=== PATIENT | male | born 1970 | race Caucasian/White ===

== ENCOUNTER 2020-03-04 23:06 | Emergency (ER) | payer MEDICARE, MEDICAID, OTHER ==
--- NOTE | 2020-03-05 00:12 | EDM.PDOC ---
ED HPI GENERAL MEDICAL PROBLEM - General Chief Complaint: ENT Problem Stated Complaint: SORE THROAT Time Seen by Provider: 03/04/20 23:50 Source of Information: Reports: Patient History Limitations: Reports: No Limitations - History of Present Illness INITIAL COMMENTS - FREE TEXT/NARRATIVE: 49-year-old male with a sore throat for the last 2 to 3 hours, no other symptoms. I think he is interested in knowing if he has strep or not. No fevers or chills. No exposure to strep that he knows of. Onset: Gradual Duration: Hour(s): (Just 3 to 4 hours) Associated Symptoms: Reports: No Other Symptoms Throat Pain Score (Numeric/FACES): 3 - Related Data Allergies Allergy/AdvReac Type Severity Reaction Status Date / Time No Known Allergies Allergy Verified 03/04/20 23:22 Home Meds: Home Meds . [Unable to Verify Home Med List] 03/04/20 [History] Past Medical History Endocrine/Metabolic History: Reports: Diabetes, Type I - Infectious Disease History Infectious Disease History: Reports: Chicken Pox - Past Surgical History GI Surgical History: Reports: Colon Social & Family History - Family History Family Medical History: Noncontributory - Tobacco Use Smoking Status *Q: Never Smoker - Caffeine Use Caffeine Use: Reports: Energy Drinks - Recreational Drug Use Recreational Drug Use: No ED ROS ENT - Review of Systems Review Of Systems: See Below Constitutional: Denies: Fever, Chills HEENT: Reports: Throat Pain Respiratory: Denies: Shortness of Breath Cardiovascular: Denies: Chest Pain GI/Abdominal: Denies: Nausea, Vomiting ED EXAM, ENT - Physical Exam Exam: See Below Exam Limited By: No Limitations General Appearance: Alert, Anxious Mouth/Throat: Pharyngeal Erythema Neck: No: Lymphadenopathy (R), Lymphadenopathy (L) Respiratory/Chest: No Respiratory Distress, Lungs Clear Course - Vital Signs Last Recorded V/S: Last Vital Signs Temp 97.2 F 03/04/20 23:24 Pulse 91 03/04/20 23:24 Resp 16 03/04/20 23:24 BP 142/82 H 03/04/20 23:24 Pulse Ox 95 03/04/20 23:24 - Orders/Labs/Meds Orders: Active Orders 24 hr Category Date Time Status CULTURE STREP A CONFIRMATION [] Routine Lab 03/05/20 00:07 Results STREP SCRN A RAPID W CULT CONF [RM] Routine Lab 03/05/20 00:07 Results - Re-Assessments/Exams Free Text/Narrative Re-Assessment/Exam: 03/05/20 00:12 A rapid strep was obtained. 03/05/20 00:22 Strep was negative, patient was encouraged to drink plenty of fluids, use lozenges and recheck if worsening or concerns. Departure - Departure Time of Disposition: 00:39 Disposition: Home, Self-Care 01 Clinical Impression: Viral pharyngitis - Discharge Information Instructions: Pharyngitis Referrals: Maura Null PA [Primary Care Provider] - Forms: ED Department Discharge Care Plan Goals: Keep throat moist with fluids, lozenges, and advance diet as tolerated. Recheck in 2 to 3 days if not improving satisfactorily or return anytime sooner if worsening such as fever or increased pain. Sepsis Event Note - Evaluation Sepsis Screening Result: No Definite Risk - Focused Exam Vital Signs: Vital Signs Temp Pulse Resp BP Pulse Ox 03/04/20 23:24 97.2 F 91 16 142/82 H 95 Date Exam was Performed: 03/05/20 Time Exam was Performed: 02:52 - My Orders Last 24 Hours: My Active Orders 03/05/20 00:07 CULTURE STREP A CONFIRMATION [RM] Routine STREP SCRN A RAPID W CULT CONF [RM] Routine - Assessment/Plan Last 24 Hours: My Active Orders 03/05/20 00:07 CULTURE STREP A CONFIRMATION [RM] Routine STREP SCRN A RAPID W CULT CONF [RM] Routine
== END 2020-03-05 00:39 | disposition home or self-care (01) ==
LOC: JP.ED 23:06
DX: J02.8 Acute pharyngitis due to other specified organisms (principal); B97.89 Other viral agents as the cause of diseases classified elsewhere; E10.9 Type 1 diabetes mellitus without complications
CPT/HCPCS: 87081; 87880-QW; 99282; 99283

== ENCOUNTER 2021-03-06 13:59 | Emergency (ER) | payer MEDICARE, MEDICAID ==
--- NOTE | 2021-03-06 15:57 | EDM.PDOC ---
ED HPI GENERAL MEDICAL PROBLEM - General Chief Complaint: Behavioral/Psych Stated Complaint: EVAL Time Seen by Provider: 03/06/21 15:18 Source of Information: Reports: Patient, RN Notes Reviewed History Limitations: Reports: No Limitations - History of Present Illness INITIAL COMMENTS - FREE TEXT/NARRATIVE: 50-year-old gentleman brought in by law enforcement for psychiatric evaluation. Per law enforcement he had written threatening letters threatening to do harm to former President Jose Alfredo Solano. Secret Service was here did interview him felt it was not a credible threat. Enforcement placed him on a 72-hour hold barring further medical and psychiatric evaluation. He does admit to me that he was very upset with his home health nurse who was a [employer] supporter they would get into various political discussions between his political views and hers which prompted him to write a letter expressing that he was going to harm form president Xiomara. He does admit that writing these things and letter was inappropriate and wrong. He denies any suicidal ideation this time denies any homicidal ideation he states he is not hearing hallucinations he was hearing hallucinations back in January when he originally wrote the letter. He is appropriate pleasant cooperative says please and thank you - Related Data Allergies Allergy/AdvReac Type Severity Reaction Status Date / Time No Known Allergies Allergy Verified 03/06/21 14:12 Home Meds: Home Meds Adalimumab [Humira Pen] 1 injection SQ ASDIRECTED 03/06/21 [History] ClonazePAM [KlonoPIN] 2 mg PO ASDIRECTED 03/06/21 [History] Divalproex Sodium 1,000 mg PO BEDTIME 03/06/21 [History] Divalproex Sodium [Depakote] 500 mg PO DAILY 03/06/21 [History] Insulin Aspart [NovoLOG] 0 units SQ TID 03/06/21 [History] Insulin Detemir [Levemir] 40 units SQ Q12H 03/06/21 [History] azaTHIOprine [Imuran] 50 mg PO DAILY 03/06/21 [History] lamoTRIgine [Lamotrigine] 50 mg PO DAILY 03/06/21 [History] Past Medical History Endocrine/Metabolic History: Reports: Diabetes, Type I - Infectious Disease History Infectious Disease History: Reports: Chicken Pox - Past Surgical History GI Surgical History: Reports: Colon Social & Family History - Family History Family Medical History: No Pertinent Family History - Caffeine Use Caffeine Use: Reports: Energy Drinks ED ROS GENERAL - Review of Systems Review Of Systems: See Below Constitutional: Reports: No Symptoms HEENT: Reports: Vertigo Cardiovascular: Reports: No Symptoms GI/Abdominal: Reports: No Symptoms Psychiatric: Denies: Agitation, Anxiety, Depression, Hallucinations, Homicidal Ideation, Suicidal Ideation ED EXAM, GENERAL - Physical Exam Exam: See Below Free Text/Narrative:: Orientated to person place and time, appropriately dressed, well groomed, memory to recent and remote events intact, good attention and concentration, speech is of adequate rate tone and volume, good fund of knowledge, language is appropriate, Mood and affect are euthymic, no pressured thoughts, denies suicidal ideation, denies homicidal ideation, no hallucinations visual or auditory, good judgment, good insight Exam Limited By: No Limitations General Appearance: Alert, WD/WN, No Apparent Distress Respiratory/Chest: No Respiratory Distress, Lungs Clear, Normal Breath Sounds, No Accessory Muscle Use, Chest Non-Tender Cardiovascular: Regular Rate, Rhythm, No Murmur GI/Abdominal: Soft, Non-Tender Course - Vital Signs Last Recorded V/S: Last Vital Signs Temp 98.2 F 03/06/21 14:11 Pulse 94 03/06/21 14:11 Resp 16 03/06/21 14:11 BP 150/91 H 03/06/21 14:11 Pulse Ox 94 L 03/06/21 14:11 - Orders/Labs/Meds Labs: Laboratory Tests 03/06/21 03/06/21 03/06/21 Range/Units 14:25 14:59 15:05 WBC 8.0 (4.5-11.0) K/uL RBC 4.95 (4.30-5.90) M/uL Hgb 15.8 H (12.0-15.0) g/dL Hct 45.6 (40.0-54.0) % MCV 92 (80-98) fL MCH 32 H (27-31) pg MCHC 35 (32-36) % Plt Count 232 (150-400) K/uL Neut % (Auto) 70 H (36-66) % Lymph % (Auto) 20 L (24-44) % Archuleta % (Auto) 7 H (2-6) % Eos % (Auto) 2 (2-4) % Baso % (Auto) 1 (0-1) % Sodium 138 L (140-148) mmol/L Potassium 4.5 (3.6-5.2) mmol/L Chloride 98 L (100-108) mmol/L Carbon Dioxide 29 (21-32) mmol/L Anion Gap 15.5 H (5.0-14.0) mmol/L BUN 14 (7-18) mg/dL Creatinine 1.0 (0.8-1.3) mg/dL Est Cr Clr Drug Dosing 107.97 mL/min Estimated GFR (MDRD) > 60 (>60) Glucose 289 H (74-106) mg/dL Calcium 8.6 (8.5-10.1) mg/dL Total Bilirubin 0.4 (0.2-1.0) mg/dL AST 22 (15-37) U/L ALT 23 (12-78) U/L Alkaline Phosphatase 83 (46-116) U/L Total Protein 7.7 (6.4-8.2) g/dL Albumin 3.2 L (3.4-5.0) g/dL Globulin 4.5 H (2.3-3.5) g/dL Albumin/Globulin Ratio 0.7 L (1.2-2.2) TSH, Ultra Sensitive 1.241 (0.358-3.740) uIU/mL Urine Opiates Screen Negative (NEGATIVE) Ur Oxycodone Screen Negative (NEGATIVE) Urine Methadone Screen Negative (NEGATIVE) Ur Propoxyphene Screen Negative (NEGATIVE) Ur Barbiturates Screen Negative (NEGATIVE) Ur Tricyclics Screen Negative (NEGATIVE) Ur Phencyclidine Scrn Negative (NEGATIVE) Ur Amphetamine Screen Negative (NEGATIVE) U Methamphetamines Scrn Negative (NEGATIVE) Urine MDMA Screen Negative (NEGATIVE) U Benzodiazepines Scrn Presumptive positive H (NEGATIVE) U Cocaine Metab Screen Negative (NEGATIVE) U Marijuana (THC) Screen Negative (NEGATIVE) SARS CoV-2 RNA Rapid JAYLON 03/06/21 Range/Units 15:19 WBC (4.5-11.0) K/uL RBC (4.30-5.90) M/uL Hgb (12.0-15.0) g/dL Hct (40.0-54.0) % MCV (80-98) fL MCH (27-31) pg MCHC (32-36) % Plt Count (150-400) K/uL Neut % (Auto) (36-66) % Lymph % (Auto) (24-44) % Archuleta % (Auto) (2-6) % Eos % (Auto) (2-4) % Baso % (Auto) (0-1) % Sodium (140-148) mmol/L Potassium (3.6-5.2) mmol/L Chloride (100-108) mmol/L Carbon Dioxide (21-32) mmol/L Anion Gap (5.0-14.0) mmol/L BUN (7-18) mg/dL Creatinine (0.8-1.3) mg/dL Est Cr Clr Drug Dosing mL/min Estimated GFR (MDRD) (>60) Glucose (74-106) mg/dL Calcium (8.5-10.1) mg/dL Total Bilirubin (0.2-1.0) mg/dL AST (15-37) U/L ALT (12-78) U/L Alkaline Phosphatase (46-116) U/L Total Protein (6.4-8.2) g/dL Albumin (3.4-5.0) g/dL Globulin (2.3-3.5) g/dL Albumin/Globulin Ratio (1.2-2.2) TSH, Ultra Sensitive (0.358-3.740) uIU/mL Urine Opiates Screen (NEGATIVE) Ur Oxycodone Screen (NEGATIVE) Urine Methadone Screen (NEGATIVE) Ur Propoxyphene Screen (NEGATIVE) Ur Barbiturates Screen (NEGATIVE) Ur Tricyclics Screen (NEGATIVE) Ur Phencyclidine Scrn (NEGATIVE) Ur Amphetamine Screen (NEGATIVE) U Methamphetamines Scrn (NEGATIVE) Urine MDMA Screen (NEGATIVE) U Benzodiazepines Scrn (NEGATIVE) U Cocaine Metab Screen (NEGATIVE) U Marijuana (THC) Screen (NEGATIVE) SARS CoV-2 RNA Rapid JAYLON Negative Departure - Departure Time of Disposition: 18:06 Disposition: Home, Self-Care 01 Condition: Fair Clinical Impression: Homicidal ideation - Discharge Information Referrals: Maura Null PA [Primary Care Provider] - Forms: ED Department Discharge Additional Instructions: Please continue to follow-up with your primary care mental health provider as well as continue follow-up with the crisis team call return to the emergency department worsening of symptoms Sepsis Event Note (ED) - Evaluation Sepsis Screening Result: No Definite Risk - Focused Exam Vital Signs: Vital Signs Temp Pulse Resp BP Pulse Ox 03/06/21 14:11 98.2 F 94 16 150/91 H 94 L - Assessment/Plan Plan: Assessment Acuity = acute Site and laterality = psychiatric evaluation for homicidal ideation Etiology = unknown Manifestations = none Location of injury = Home Lab values = CBC unremarkable glucose elevated to 75 consistent hyperglycemia remainder metabolic panel unremarkable urine drug screen positive for benzodiazepines Covid was negative Plan Crisis team was contacted after review with the crisis team felt he was safe to go home with safety plan he will continue with mental health care with his mental health provider, 72-hour hold by law enforcement will be discontinued, please see notes for details This note was dictated using [employer] voice recognition software please call with any questions on syntax or grammar.
== END 2021-03-06 18:55 | disposition home or self-care (01) ==
LOC: JP.ED 13:59
DX: R45.850 Homicidal ideations (principal); E10.9 Type 1 diabetes mellitus without complications; Z79.899 Other long term (current) drug therapy; Z20.822 Contact with and (suspected) exposure to COVID-19
CPT/HCPCS: 36415; 80053; 80305; 84443; 85025; 99285; U0002

== ENCOUNTER 2021-06-29 08:08 | Emergency (ER) | payer MEDICARE, MEDICAID ==
--- NOTE | 2021-06-29 09:47 | EDM.PDOC ---
ED HPI GENERAL MEDICAL PROBLEM - General Chief Complaint: Neck Problem Stated Complaint: NECK PAIN Time Seen by Provider: 06/29/21 09:41 Source of Information: Reports: Patient History Limitations: Reports: No Limitations - History of Present Illness INITIAL COMMENTS - FREE TEXT/NARRATIVE: pt arrived with pain on the left side of his neck. He did not injure himself. He got up one day and this was very tight. Onset: Gradual, Other ( started thu. ) Duration: Hour(s): Location: Reports: Neck Associated Symptoms: Reports: No Other Symptoms - Related Data Allergies Allergy/AdvReac Type Severity Reaction Status Date / Time No Known Allergies Allergy Verified 06/29/21 08:35 Home Meds: Home Meds Adalimumab [Humira Pen] 1 injection SQ ASDIRECTED 03/06/21 [History] ClonazePAM [KlonoPIN] 2 mg PO ASDIRECTED 03/06/21 [History] Divalproex Sodium 1,000 mg PO BEDTIME 03/06/21 [History] Divalproex Sodium [Depakote] 500 mg PO DAILY 03/06/21 [History] Insulin Aspart [NovoLOG] 0 units SQ TID 03/06/21 [History] Insulin Detemir [Levemir] 40 units SQ Q12H 03/06/21 [History] azaTHIOprine [Imuran] 50 mg PO DAILY 03/06/21 [History] lamoTRIgine [Lamotrigine] 50 mg PO DAILY 03/06/21 [History] Ciprofloxacin HCl [Cipro] 1 tab PO BID 06/29/21 [History] fluvoxaMINE [Luvox] 1 tab PO BID 06/29/21 [History] metroNIDAZOLE [Metronidazole] 1 tab PO DAILY 06/29/21 [History] Past Medical History Endocrine/Metabolic History: Reports: Diabetes, Type I - Infectious Disease History Infectious Disease History: Reports: Chicken Pox - Past Surgical History GI Surgical History: Reports: Colon Social & Family History - Family History Family Medical History: No Pertinent Family History - Tobacco Use Tobacco Use Status *Q: Never Tobacco User - Caffeine Use Caffeine Use: Reports: Energy Drinks ED ROS GENERAL - Review of Systems Review Of Systems: See Below Constitutional: Reports: No Symptoms HEENT: Reports: No Symptoms Respiratory: Reports: No Symptoms Cardiovascular: Reports: No Symptoms Endocrine: Reports: No Symptoms GI/Abdominal: Reports: No Symptoms Musculoskeletal: Reports: Other (pt is having left sided neck pain. ) Skin: Reports: No Symptoms Neurological: Reports: No Symptoms ED EXAM, UPPER BACK/NECK PAIN - Physical Exam Exam: See Below Text/Narrative:: pt arrived with left sided neck pain. He got up wed with the pain and it has remained. Exam Limited By: No Limitations General Appearance: Alert Ears Exam: Normal TMs Nose Exam: Normal Inspection Throat/Mouth Exam: Normal Inspection Head Exam: Atraumatic Neck Exam: Other (pt has muscle tightnesxs on the left post cervical area. ) Cardiovascular/Respiratory: Regular Rate, Rhythm (Male) Exam: Deferred Rectal (Males) Exam: Deferred Back Exam: Other (pt is tight in the left post cervical area. ) Extremities: Normal Inspection Neurologic: Alert Psychiatric: Normal Affect Course - Vital Signs Last Recorded V/S: Last Vital Signs Temp 36.8 C 06/29/21 08:43 Pulse 98 06/29/21 08:43 Resp 16 06/29/21 08:43 BP 123/78 06/29/21 08:43 Pulse Ox 94 L 06/29/21 08:43 Departure - Departure Time of Disposition: 09:45 Disposition: Home, Self-Care 01 Condition: Fair Clinical Impression: Cervical paraspinal muscle spasm - Discharge Information Instructions: Muscle Cramps and Spasms, [id number] Referrals: PCP,None [Primary Care Provider] - Forms: ED Department Discharge Care Plan Goals: alternate with heat and ice to neck area. stretching exercise to avoid shortening of the muscle, baclofen 10 mg bid to relax muscle. tylenol or motrin for pain. Sepsis Event Note (ED) - Evaluation Sepsis Screening Result: No Definite Risk
== END 2021-06-29 10:09 | disposition home or self-care (01) ==
LOC: JP.ED 08:08
DX: M62.838 Other muscle spasm (principal); E10.9 Type 1 diabetes mellitus without complications
CPT/HCPCS: 99283

== ENCOUNTER 2021-08-31 17:55 | Emergency (ER) | payer MEDICARE, MEDICAID | END 2021-08-31 18:28 | disposition left against medical advice (07) | LOC: JP.ED 17:55 | DX: Z53.21 Procedure and treatment not carried out due to patient leaving prior to being seen by health care provider (principal) ==

== ENCOUNTER 2021-09-01 05:36 | Emergency (ER) | payer MEDICARE, MEDICAID ==
--- NOTE | 2021-09-01 05:56 | EDM.PDOC ---
ED HPI GENERAL MEDICAL PROBLEM - General Chief Complaint: Gastrointestinal Problem Stated Complaint: CALASTOMY BAG ISSUES Time Seen by Provider: 09/01/21 05:45 Source of Information: Reports: Patient, EMS History Limitations: Reports: No Limitations - History of Present Illness INITIAL COMMENTS - FREE TEXT/NARRATIVE: 51-year-old male arrives by EMS because his ostomy bag is leaking and is out of supplies. No fevers or chills, no abdominal pain but he does have some rib irritation and dermatitis around the ostomy site especially inferior and lateral to the ostomy. Onset: Gradual Associated Symptoms: Reports: No Other Symptoms ostomy site Pain Score (Numeric/FACES): 3 - Related Data Allergies Allergy/AdvReac Type Severity Reaction Status Date / Time No Known Allergies Allergy Verified 09/01/21 16:32 Home Meds: Home Meds Adalimumab [Humira Pen] 1 injection SQ ASDIRECTED 03/06/21 [History] ClonazePAM [KlonoPIN] 2 mg PO ASDIRECTED 03/06/21 [History] Insulin Aspart [NovoLOG] 0 units SQ TID 03/06/21 [History] Insulin Detemir [Levemir] 40 units SQ Q12H 03/06/21 [History] azaTHIOprine [Imuran] 200 mg PO DAILY 03/06/21 [History] lamoTRIgine [Lamotrigine] 50 mg PO DAILY 03/06/21 [History] fluvoxaMINE [Luvox] 200 mg PO BID 06/29/21 [History] Divalproex Sodium [Divalproex Sodium ER] 500 mg PO ASDIRECTED 09/01/21 [History] ziprasidone HCL [Ziprasidone HCl] 60 mg PO ASDIRECTED 09/01/21 [History] Past Medical History Endocrine/Metabolic History: Reports: Diabetes, Type I - Infectious Disease History Infectious Disease History: Reports: Chicken Pox - Past Surgical History GI Surgical History: Reports: Colon Social & Family History - Family History Family Medical History: No Pertinent Family History - Caffeine Use Caffeine Use: Reports: Energy Drinks ED ROS GENERAL - Review of Systems Review Of Systems: See Below Constitutional: Denies: Fever, Chills Respiratory: Denies: Shortness of Breath Cardiovascular: Denies: Chest Pain GI/Abdominal: Denies: Nausea, Vomiting Skin: Reports: Erythema (Around the ostomy site) ED EXAM, GENERAL - Physical Exam Exam: See Below Exam Limited By: No Limitations General Appearance: Alert, No Apparent Distress Respiratory/Chest: No Respiratory Distress Neurological: Alert, Oriented Skin Exam: Erythema (A large area of erythema around the ostomy where he had tape applied to the skin, but there is a small 1.5 cm area of deeper dermatitis inferior and lateral to the ostomy site which looks somewhat more erosive) Course - Vital Signs Last Recorded V/S: Last Vital Signs Temp 96.0 F L 09/01/21 05:51 Pulse 75 09/01/21 05:51 Resp 14 09/01/21 05:51 BP 133/78 09/01/21 05:51 Pulse Ox 95 09/01/21 05:51 - Re-Assessments/Exams Free Text/Narrative Re-Assessment/Exam: 09/01/21 05:52 This patient has some erosive dermatitis around the ostomy site but it does not appear to be infected. A new ostomy bag was placed without difficulty, adhesion was firm and sufficient. Departure - Departure Time of Disposition: 06:14 Disposition: Home, Self-Care 01 Clinical Impression: Dermatitis - Discharge Information Instructions: Contact Dermatitis, [id number] Referrals: PCP,None [Primary Care Provider] - Forms: ED Department Discharge Care Plan Goals: Use ostomy supplies appropriately, and recheck with your primary provider if the dermatitis around your ostomy site does not improve satisfactorily. Sepsis Event Note (ED) - Focused Exam Vital Signs: Vital Signs Temp Pulse Resp BP Pulse Ox 09/01/21 05:51 96.0 F L 75 14 133/78 95 09/01/21 05:47 96.0 F L 75 14 133/78 95
== END 2021-09-01 06:15 | disposition home or self-care (01) ==
LOC: JP.ED 05:36
DX: L30.9 Dermatitis, unspecified (principal); E10.9 Type 1 diabetes mellitus without complications
CPT/HCPCS: 99283

== ENCOUNTER 2021-09-01 16:25 | Emergency (ER) | payer MEDICARE, MEDICAID ==
--- NOTE | 2021-09-01 17:15 | EDM.PDOC ---
ED HPI GENERAL MEDICAL PROBLEM - General Chief Complaint: Gastrointestinal Problem Stated Complaint: COLOSCOMY BAG ISSUE Time Seen by Provider: 09/01/21 16:55 Source of Information: Reports: Patient, EMS, Old Records, RN History Limitations: Reports: No Limitations - History of Present Illness INITIAL COMMENTS - FREE TEXT/NARRATIVE: 51 yo male with mental health issues and who is a patient of Abena Null's presents via EMS from his home here in town for what he thought was a slightly leaking colostomy bag attachment site. He has been in and out of the ER all weekend due to his concerns of leaking bags or running out of supplies. Onset: Unknown/Unsure Duration: Minutes: Location: Reports: Abdomen Quality: Reports: Other (pain is not a concern) Severity: Mild Improves with: Reports: None Worsens with: Reports: Other (unsure) Context: Reports: Other (See HPI) Associated Symptoms: Reports: No Other Symptoms Treatments SURGERY SCHEDULING COORDINATOR: Reports: Other (see below) (none) - Related Data Allergies Allergy/AdvReac Type Severity Reaction Status Date / Time No Known Allergies Allergy Verified 09/01/21 16:32 Home Meds: Home Meds Adalimumab [Humira Pen] 1 injection SQ ASDIRECTED 03/06/21 [History] ClonazePAM [KlonoPIN] 2 mg PO ASDIRECTED 03/06/21 [History] Insulin Aspart [NovoLOG] 0 units SQ TID 03/06/21 [History] Insulin Detemir [Levemir] 40 units SQ Q12H 03/06/21 [History] azaTHIOprine [Imuran] 200 mg PO DAILY 03/06/21 [History] lamoTRIgine [Lamotrigine] 50 mg PO DAILY 03/06/21 [History] fluvoxaMINE [Luvox] 200 mg PO BID 06/29/21 [History] Divalproex Sodium [Divalproex Sodium ER] 500 mg PO ASDIRECTED 09/01/21 [History] ziprasidone HCL [Ziprasidone HCl] 60 mg PO ASDIRECTED 09/01/21 [History] Past Medical History Gastrointestinal History: Reports: Other (See Below) Other Gastrointestinal History: ulcerative colitis. Crohns Psychiatric History: Reports: OCD, Schizophrenia Endocrine/Metabolic History: Reports: Diabetes, Type I - Infectious Disease History Infectious Disease History: Reports: Chicken Pox - Past Surgical History GI Surgical History: Reports: Colon, Colostomy Other GI Surgeries/Procedures: colon surgery due ulcerative colitis Social & Family History - Family History Family Medical History: No Pertinent Family History - Caffeine Use Caffeine Use: Reports: Energy Drinks ED ROS GENERAL - Review of Systems Review Of Systems: See Below Constitutional: Reports: No Symptoms HEENT: Reports: No Symptoms Respiratory: Reports: No Symptoms Cardiovascular: Reports: No Symptoms GI/Abdominal: Reports: Other (leaking colostomy site suspected) : Reports: No Symptoms Musculoskeletal: Reports: No Symptoms Skin: Reports: Other Neurological: Reports: No Symptoms Psychiatric: Reports: Other (hx of mental illness) ED EXAM, GI/ABD - Physical Exam Exam: See Below Exam Limited By: No Limitations General Appearance: Alert, WD/WN, No Apparent Distress Eyes: Bilateral: Normal Appearance Ears: Normal External Exam, Hearing Grossly Normal Nose: Normal Inspection, No Blood Throat/Mouth: Normal Inspection, Normal Oropharynx, Normal Voice, No Airway Compromise Head: Atraumatic, Normocephalic Neck: Normal Inspection GI/Abdominal Exam: Other (the dampness that he was noticing was not brown, but rather colorless suggesting it is more from the serous drainage associated with the skin breakdown in this area. He had been putting layers of tape around his colostomy attachment site that had resulted in some skin breakdown/irritation. ) Extremities: Normal Inspection Neurological: Alert, Oriented, CN II-XII Intact, Normal Cognition, No Motor/Sensory Deficits Psychiatric: Anxious Skin Exam: Warm, Dry, Intact, Normal Color, No Rash, Other (dried feces on his feet from leakage of his bag yesterday. ) Course - Vital Signs Last Recorded V/S: Last Vital Signs Temp 35.9 C L 09/01/21 16:41 Pulse 102 H 09/01/21 16:41 Resp 16 09/01/21 16:41 BP 117/75 09/01/21 16:41 Pulse Ox 95 09/01/21 16:41 Departure - Departure Time of Disposition: 17:15 Disposition: Home, Self-Care 01 Condition: Good Clinical Impression: Skin irritation due to topical agent - Discharge Information *PRESCRIPTION DRUG MONITORING PROGRAM REVIEWED*: Not Applicable *COPY OF PRESCRIPTION DRUG MONITORING REPORT IN PATIENT FIOR: Not Applicable Referrals: Maura Null PA [Primary Care Provider] - Additional Instructions: Keep tape off your skin as much as possible to allow the skin to heal. Follow up with Abena Null tomorrow regarding your colostomy concerns. Sepsis Event Note (ED) - Focused Exam Vital Signs: Vital Signs Temp Pulse Resp BP Pulse Ox 09/01/21 16:41 35.9 C L 102 H 16 117/75 95 09/01/21 16:36 35.9 C L 102 H 16 117/75 95
== END 2021-09-01 17:30 | disposition home or self-care (01) ==
LOC: JP.ED 16:25
DX: L98.8 Other specified disorders of the skin and subcutaneous tissue (principal)
CPT/HCPCS: 99283

== ENCOUNTER 2021-09-01 23:49 | Emergency (ER) | payer MEDICARE, MEDICAID ==
--- NOTE | 2021-09-02 00:32 | EDM.PDOC ---
ED HPI GENERAL MEDICAL PROBLEM - General Chief Complaint: Gastrointestinal Problem Stated Complaint: COLOSTOMY BAG ISSUES Time Seen by Provider: 09/02/21 00:00 Source of Information: Reports: Patient, EMS History Limitations: Reports: No Limitations - History of Present Illness INITIAL COMMENTS - FREE TEXT/NARRATIVE: 51-year-old male seen for the third time today because he is extremely anxious about dermatitis around his ostomy site and irritation from the ostomy bags. He has been seen twice earlier today and a new bag was placed but it is irritating so he keeps removing it and coming back in to want something done. It has been explained to him that he has a dermatitis and it will take some time to heal. Onset: Unknown/Unsure Associated Symptoms: Reports: Other (Anxiety) - Related Data Allergies Allergy/AdvReac Type Severity Reaction Status Date / Time No Known Allergies Allergy Verified 09/02/21 00:16 Home Meds: Home Meds Adalimumab [Humira Pen] 1 injection SQ ASDIRECTED 03/06/21 [History] ClonazePAM [KlonoPIN] 2 mg PO ASDIRECTED 03/06/21 [History] Insulin Aspart [NovoLOG] 0 units SQ TID 03/06/21 [History] Insulin Detemir [Levemir] 40 units SQ Q12H 03/06/21 [History] azaTHIOprine [Imuran] 200 mg PO DAILY 03/06/21 [History] lamoTRIgine [Lamotrigine] 50 mg PO DAILY 03/06/21 [History] fluvoxaMINE [Luvox] 200 mg PO BID 06/29/21 [History] Divalproex Sodium [Divalproex Sodium ER] 500 mg PO ASDIRECTED 09/01/21 [History] ziprasidone HCL [Ziprasidone HCl] 60 mg PO ASDIRECTED 09/01/21 [History] Past Medical History Gastrointestinal History: Reports: Other (See Below) Other Gastrointestinal History: ulcerative colitis. Crohns Psychiatric History: Reports: OCD, Schizophrenia Endocrine/Metabolic History: Reports: Diabetes, Type I - Infectious Disease History Infectious Disease History: Reports: Chicken Pox - Past Surgical History GI Surgical History: Reports: Colon, Colostomy Other GI Surgeries/Procedures: colon surgery due ulcerative colitis Social & Family History - Family History Family Medical History: No Pertinent Family History - Tobacco Use Tobacco Use Status *Q: Current Status Unknown - Caffeine Use Caffeine Use: Reports: None - Recreational Drug Use Recreational Drug Use: No ED ROS GENERAL - Review of Systems Review Of Systems: See Below Constitutional: Denies: Fever, Chills Respiratory: Denies: Shortness of Breath Cardiovascular: Denies: Chest Pain GI/Abdominal: Reports: Abdominal Pain (Has superficial abdominal pain on the skin around the ostomy site). Denies: Nausea, Vomiting Skin: Reports: Erythema, Other Neurological: Denies: Headache ED EXAM, GENERAL - Physical Exam Exam: See Below Exam Limited By: No Limitations General Appearance: Alert, Anxious Respiratory/Chest: No Respiratory Distress Cardiovascular: Regular Rate, Rhythm GI/Abdominal: Normal Bowel Sounds Extremities: No: Pedal Edema Neurological: Alert, Oriented Psychiatric: Anxious Skin Exam: Warm, Dry, Other (He has significant erythema around his ostomy site with a more confluent slightly deeper dermatitis within a few centimeters around the ostomy opening. This is very consistent with his exam this morning) Course - Vital Signs Last Recorded V/S: Last Vital Signs Temp 97.1 F 09/02/21 00:18 Pulse 77 09/02/21 00:18 Resp 18 09/02/21 00:18 BP 107/70 09/02/21 00:18 Pulse Ox 95 09/02/21 00:18 - Re-Assessments/Exams Free Text/Narrative Re-Assessment/Exam: 09/02/21 00:30 A new bag was applied and the patient was asked to see the wound clinic tomorrow for consultation on care of this dermatitis around his ostomy site. Departure - Departure Time of Disposition: 00:51 Disposition: Home, Self-Care 01 Clinical Impression: Dermatitis - Discharge Information Instructions: Colostomy Home Guide, Adult, Contact Dermatitis, [id number] Referrals: PCP,None [Primary Care Provider] - Forms: ED Department Discharge Care Plan Goals: Please keep your bag on until it needs changing, and call the clinic tomorrow morning to get a consultation with the wound clinic to discuss the best way to heal your dermatitis with the least amount of irritation and symptoms. Sepsis Event Note (ED) - Evaluation Sepsis Screening Result: No Definite Risk - Focused Exam Vital Signs: Vital Signs Temp Pulse Resp BP Pulse Ox 09/02/21 00:18 97.1 F 77 18 107/70 95 09/02/21 00:08 97.1 F 77 18 107/70 95
== END 2021-09-02 00:58 | disposition home or self-care (01) ==
LOC: JP.ED 23:49
DX: L30.9 Dermatitis, unspecified (principal); E10.9 Type 1 diabetes mellitus without complications; Z79.899 Other long term (current) drug therapy
CPT/HCPCS: 99283

== ENCOUNTER 2021-09-17 20:27 | Emergency (ER) | payer MEDICARE, MEDICAID ==
--- NOTE | 2021-09-17 21:59 | EDM.PDOC ---
ED HPI GENERAL MEDICAL PROBLEM - General Chief Complaint: Gastrointestinal Problem Stated Complaint: [facility] Time Seen by Provider: 09/17/21 21:55 Source of Information: Reports: Patient, RN Notes Reviewed History Limitations: Reports: No Limitations - History of Present Illness INITIAL COMMENTS - FREE TEXT/NARRATIVE: 51-year-old gentleman presents emergency department today via EMS services complaint of new ostomy bag, he has no other issues other than he would like a new ostomy bag - Related Data Allergies Allergy/AdvReac Type Severity Reaction Status Date / Time No Known Allergies Allergy Verified 09/17/21 21:41 Home Meds: Home Meds Adalimumab [Humira Pen] 1 injection SQ ASDIRECTED 03/06/21 [History] ClonazePAM [KlonoPIN] 2 mg PO ASDIRECTED 03/06/21 [History] Insulin Aspart [NovoLOG] 0 units SQ TID 03/06/21 [History] Insulin Detemir [Levemir] 40 units SQ Q12H 03/06/21 [History] azaTHIOprine [Imuran] 200 mg PO DAILY 03/06/21 [History] lamoTRIgine [Lamotrigine] 50 mg PO DAILY 03/06/21 [History] fluvoxaMINE [Luvox] 200 mg PO BID 06/29/21 [History] Divalproex Sodium [Divalproex Sodium ER] 500 mg PO ASDIRECTED 09/01/21 [History] ziprasidone HCL [Ziprasidone HCl] 60 mg PO ASDIRECTED 09/01/21 [History] Past Medical History Gastrointestinal History: Reports: Other (See Below) Other Gastrointestinal History: ulcerative colitis. Crohns Psychiatric History: Reports: OCD, Schizophrenia Endocrine/Metabolic History: Reports: Diabetes, Type I - Infectious Disease History Infectious Disease History: Reports: Chicken Pox - Past Surgical History GI Surgical History: Reports: Colon, Colostomy Other GI Surgeries/Procedures: colon surgery due ulcerative colitis Social & Family History - Family History Family Medical History: No Pertinent Family History - Tobacco Use Tobacco Use Status *Q: Never Tobacco User - Caffeine Use Caffeine Use: Reports: None ED ROS GENERAL - Review of Systems Review Of Systems: See Below Reason Not Obtained: Ostomy bag not functioning Constitutional: Reports: No Symptoms ED EXAM, GENERAL - Physical Exam Exam: See Below Free Text/Narrative:: Ostomy bag changed by nursing staff please see note for details Exam Limited By: No Limitations General Appearance: Alert, WD/WN, No Apparent Distress Course - Vital Signs Last Recorded V/S: Last Vital Signs Temp 96.5 F L 09/17/21 21:41 Pulse 86 09/17/21 21:41 Resp 14 09/17/21 21:41 BP 126/76 09/17/21 21:41 Pulse Ox 97 09/17/21 21:41 Departure - Departure Time of Disposition: 21:58 Disposition: Home, Self-Care 01 Condition: Fair Clinical Impression: Ostomy nurse consultation - Discharge Information Referrals: Maura Null PA [Primary Care Provider] - Additional Instructions: Follow-up with primary care as needed Sepsis Event Note (ED) - Evaluation Sepsis Screening Result: No Definite Risk - Focused Exam Vital Signs: Vital Signs Temp Pulse Resp BP Pulse Ox 09/17/21 21:41 96.5 F L 86 14 126/76 97 09/17/21 20:50 96.5 F L 86 14 126/76 97
== END 2021-09-17 22:24 | disposition home or self-care (01) ==
LOC: JP.ED 20:27
DX: Z43.3 Encounter for attention to colostomy (principal)
CPT/HCPCS: 99283

== ENCOUNTER 2021-09-18 07:34 | Emergency (ER) | payer MEDICARE, MEDICAID ==
--- NOTE | 2021-09-18 08:11 | EDM.PDOC ---
ED HPI GENERAL MEDICAL PROBLEM - General Chief Complaint: Skin Complaint Stated Complaint: MEDICAL [facility] Time Seen by Provider: 09/18/21 08:00 Source of Information: Reports: Patient, EMS History Limitations: Reports: No Limitations - History of Present Illness INITIAL COMMENTS - FREE TEXT/NARRATIVE: 51-year-old male has a persistent dermatitis around his colostomy site over the past month, he has had several ER visits for colostomy bag changes and advice on treatments for the dermatitis. Unfortunately I asked him to go see the wound clinic or surgical department for advice on any other types of ostomy bags that would be less irritating but he "forgot". He came in by ambulance last night for an ostomy bag, it is again leaking today so he called the ambulance again. The dermatitis and erythema around the ostomy site does look inflamed, somewhat worse than it did when I saw him 2 weeks ago. Onset: Unknown/Unsure Duration: Week(s): (Ongoing for several weeks) Location: Reports: Abdomen Associated Symptoms: Reports: Other (Dermatitis around the ostomy site) - Related Data Allergies Allergy/AdvReac Type Severity Reaction Status Date / Time No Known Allergies Allergy Verified 09/18/21 07:45 Home Meds: Home Meds Adalimumab [Humira Pen] 1 injection SQ ASDIRECTED 03/06/21 [History] ClonazePAM [KlonoPIN] 2 mg PO ASDIRECTED 03/06/21 [History] Insulin Aspart [NovoLOG] 0 units SQ TID 03/06/21 [History] Insulin Detemir [Levemir] 40 units SQ Q12H 03/06/21 [History] azaTHIOprine [Imuran] 200 mg PO DAILY 03/06/21 [History] lamoTRIgine [Lamotrigine] 50 mg PO DAILY 03/06/21 [History] fluvoxaMINE [Luvox] 200 mg PO BID 06/29/21 [History] Divalproex Sodium [Divalproex Sodium ER] 500 mg PO ASDIRECTED 09/01/21 [History] ziprasidone HCL [Ziprasidone HCl] 60 mg PO ASDIRECTED 09/01/21 [History] Past Medical History Gastrointestinal History: Reports: Other (See Below) Other Gastrointestinal History: ulcerative colitis. Crohns Psychiatric History: Reports: OCD, Schizophrenia Endocrine/Metabolic History: Reports: Diabetes, Type I - Infectious Disease History Infectious Disease History: Reports: Chicken Pox - Past Surgical History GI Surgical History: Reports: Colon, Colostomy Other GI Surgeries/Procedures: colon surgery due ulcerative colitis Social & Family History - Family History Family Medical History: No Pertinent Family History - Tobacco Use Tobacco Use Status *Q: Never Tobacco User - Caffeine Use Caffeine Use: Reports: None ED ROS GENERAL - Review of Systems Review Of Systems: See Below Constitutional: Denies: Fever, Chills HEENT: Reports: No Symptoms Respiratory: Denies: Shortness of Breath Cardiovascular: Denies: Chest Pain GI/Abdominal: Reports: Other (Ostomy site is working, it is the bag not adhering to the dermatitis around the site which is the problem). Denies: Abdominal Pain Skin: Reports: Erythema ED EXAM, SKIN/RASH Exam: See Below Exam Limited By: No Limitations General Appearance: Alert, No Apparent Distress Eye Exam: Bilateral Eye: Normal Inspection (No jaundice) Head: Atraumatic Respiratory/Chest: No Respiratory Distress Cardiovascular: Regular Rate, Rhythm GI/Abdominal: Other (Ostomy site on the left lateral abdomen is draining appropriately) Neurological: Alert Skin: Other (There is an inflamed square shaped area around the ostomy site that is very erythematous and irritated. It appears to match the covered area where the patient was applying tape to his abdomen earlier this month) Course - Vital Signs Last Recorded V/S: Last Vital Signs Temp 97.0 F 09/18/21 07:47 Pulse 67 09/18/21 07:47 Resp 18 09/18/21 07:47 BP 104/69 09/18/21 07:47 Pulse Ox 95 09/18/21 07:47 - Orders/Labs/Meds Meds: Medications Discontinued Medications Generic Name Dose Route Start Last Admin Trade Name Marco PRN Reason Stop Dose Admin Al Hydroxide/Mg Hydroxide 30 ml 09/18/21 11:42 Aluminum Hydroxide/Magnesium Hydroxide/Simethicone Susp 30 Ml Cup PO 09/18/21 11:43 ONETIME ONE - Re-Assessments/Exams Free Text/Narrative Re-Assessment/Exam: 09/18/21 08:14 This area is obviously an ongoing dermatitis problem causing colostomy bag issues. We will try to get him into the clinic this morning for a consultation. The area was cleaned thoroughly. 09/18/21 08:55 Surgical nursing and wound care over at the clinic was asked to see the patient for their advice, they said they have "nothing to offer him". They recommended he go to wherever he is getting his colostomy care. 09/18/21 08:57 Our hospital corporate event planner fortunately has some significant past experience and she saw the patient and offered advice which was given to the patient. 09/18/21 11:04 After a few hours the patient was getting uncomfortable waiting any longer so a large colostomy bag was placed on the patient with some hypoallergenic tape. He should recheck at his primary provider if he has any more difficulties. Departure - Departure Time of Disposition: 13:22 Disposition: Home, Self-Care 01 Clinical Impression: Contact dermatitis Qualifiers: Contact dermatitis type: irritant Contact dermatitis trigger: stoma Type of stoma: digestive stoma Qualified Code(s): L24.B1 - Irritant contact dermatitis related to digestive stoma or fistula - Discharge Information Instructions: Contact Dermatitis Referrals: Maura Null PA [Advanced RN Practitioner] - 09/26/21 11:15 am Beau Higgins MD [Physician] - 09/30/21 2:00 pm Forms: ED Department Discharge Care Plan Goals: You need to recheck at the clinic for any further problems with your regular providers. Sepsis Event Note (ED) - Evaluation Sepsis Screening Result: No Definite Risk - Focused Exam Vital Signs: Vital Signs Temp Pulse Resp BP Pulse Ox 09/18/21 07:47 97.0 F 67 18 104/69 95 09/18/21 07:44 97.0 F 67 18 104/69 95
[2021-09-18] MEDS ORDERED: Aluminum Hydroxide/Magnesium Hydroxide/Simethicone Susp 30 ML Cup PO ONE (11:42)
== END 2021-09-18 13:22 | disposition home or self-care (01) ==
LOC: JP.ED 07:34
DX: L24.B1 Irritant contact dermatitis related to digestive stoma or fistula (principal); E10.9 Type 1 diabetes mellitus without complications
CPT/HCPCS: 99283

== ENCOUNTER 2022-05-14 07:31 | Emergency (ER) | payer MEDICARE, MEDICAID | END 2022-05-14 10:33 | disposition home or self-care (01) | LOC: JP.ED 07:31 | DX: K94.03 Colostomy malfunction (principal); L30.9 Dermatitis, unspecified; E10.9 Type 1 diabetes mellitus without complications | CPT/HCPCS: 99282; 99283 ==

== ENCOUNTER 2022-05-30 09:05 | Emergency (ER) | payer MEDICARE, MEDICAID ==
[2022-05-30] MEDS ORDERED: 50% Dextrose in Water 50 ML Syringe IVPUSH PRN ×2 (09:13→09:17)
[2022-05-30] MEDS ORDERED: Glucagon,Human Recombinant 1 MG Vial IM PRN ×2 (09:13→09:17)
[2022-05-30] MEDS ORDERED: Insulin Glargine,Human Rec. Analog 100 Units/ML 3 ML Pen SUBCUT SCH (09:15)
[2022-05-30] MEDS ORDERED: ClonazePAM 1 MG Tab PO SCH (09:15)
[2022-05-30] MEDS ORDERED: Ziprasidone HCl 20 MG Cap PO SCH (09:15)
[2022-05-30] MEDS ORDERED: Insulin Lispro 100 Unit/ML 3 ML KwikPen SUBCUT SCH (12:00)
== END 2022-05-30 12:55 | disposition home or self-care (01) ==
LOC: JP.ED 09:05
DX: E10.10 Type 1 diabetes mellitus with ketoacidosis without coma (principal); Z88.8 Allergy status to other drugs, medicaments and biological substances; Z88.1 Allergy status to other antibiotic agents; Z79.899 Other long term (current) drug therapy
CPT/HCPCS: 36415; 80048; 81003; 82009; 82803; 82947; 99283; 99285; A9270; J1815

== ENCOUNTER 2022-06-07 18:52 | Emergency (ER) | payer MEDICARE, MEDICAID | END 2022-06-07 21:15 | disposition home or self-care (01) | LOC: JP.ED 18:52 | DX: Z43.3 Encounter for attention to colostomy (principal); E10.9 Type 1 diabetes mellitus without complications | CPT/HCPCS: 99283 ==

== ENCOUNTER → 2022-06-07 | Emergency (ER) | payer MEDICARE, MEDICAID | LOC: JP.ED 09:01 | DX: Z53.21 Procedure and treatment not carried out due to patient leaving prior to being seen by health care provider (principal) ==

== ENCOUNTER 2022-07-08 08:07 | Emergency (ER) | payer MEDICARE, MEDICAID | END 2022-07-08 09:46 | disposition home or self-care (01) | LOC: JP.ED 08:07 | DX: F20.0 Paranoid schizophrenia (principal); K50.90 Crohn's disease, unspecified, without complications; E10.8 Type 1 diabetes mellitus with unspecified complications; Z79.899 Other long term (current) drug therapy; Z88.8 Allergy status to other drugs, medicaments and biological substances | CPT/HCPCS: 99283 ==

== ENCOUNTER 2022-07-14 19:58 | Emergency (ER) | payer MEDICARE, MEDICAID ==
[2022-07-14] MEDS ORDERED: 50% Dextrose in Water 50 ML Syringe IVPUSH PRN ×2 (23:08→23:30)
[2022-07-14] MEDS ORDERED: Glucagon,Human Recombinant 1 MG Vial IM PRN ×2 (23:08→23:30)
[2022-07-14] MEDS ORDERED: Insulin Glargine,Human Rec. Analog 100 Units/ML 3 ML Pen SUBCUT ONE (23:31)
[2022-07-14] MEDS ORDERED: Ziprasidone HCl 20 MG Cap PO ONE (23:33)
[2022-07-15] MEDS ORDERED: Glucagon,Human Recombinant 1 MG Vial IM PRN (00:06)
[2022-07-15] MEDS ORDERED: Insulin Lispro 100 Units/ML 3 ML Vial SUBCUT ONE (00:06)
[2022-07-15] MEDS ORDERED: 50% Dextrose in Water 50 ML Syringe IVPUSH PRN (00:06)
[2022-07-15] MEDS ORDERED: Ziprasidone HCl 20 MG Cap PO SCH (21:00)
[2022-07-15] MEDS ORDERED: Ziprasidone HCl 20 MG Cap PO ONE (23:07)
[2022-07-15] MEDS ORDERED: Insulin Glargine,Human Rec. Analog 100 Units/ML 3 ML Pen SUBCUT ONE (23:09)
== END 2022-07-15 01:41 | disposition home or self-care (01) ==
LOC: JP.ED 19:58
DX: F20.0 Paranoid schizophrenia (principal); K50.90 Crohn's disease, unspecified, without complications; E10.9 Type 1 diabetes mellitus without complications; Z79.4 Long term (current) use of insulin; Z91.19 Patient's noncompliance with other medical treatment and regimen
CPT/HCPCS: 81003; 82947; 99284; A9270-GY; J1815-GY

== ENCOUNTER 2022-07-21 22:32 | Emergency (ER) | payer MEDICARE, MEDICAID ==
[2022-07-21] MEDS ORDERED: hydrOXYzine HCl 25 MG Tab PO ONE (22:56)
[2022-07-21] MEDS ORDERED: ARIPiprazole 10 MG Tab PO ONE (22:57)
[2022-07-21] MEDS ORDERED: Divalproex Sodium 250 MG Tab.ER PO ONE (22:57)
[2022-07-21] MEDS ORDERED: lamoTRIgine 25 MG Tab PO ONE (22:58)
[2022-07-21] MEDS ORDERED: 50% Dextrose in Water 50 ML Syringe IVPUSH PRN (23:12)
[2022-07-21] MEDS ORDERED: Glucagon,Human Recombinant 1 MG Vial IM PRN (23:12)
[2022-07-21] MEDS ORDERED: Insulin Glargine,Human Rec. Analog 100 Units/ML 3 ML Pen SUBCUT STA (23:12)
[2022-07-21] MEDS ORDERED: Insulin Lispro 100 Units/ML 3 ML Vial SUBCUT ONE (23:13)
[2022-07-22 00:02] LABS: ESTIMATED GFR 74 mL/min (>60)
[2022-07-22] MEDS ORDERED: Insulin Lispro 100 Units/ML 3 ML Vial SUBCUT ONE (00:05)
== END 2022-07-22 01:47 ==
LOC: JP.ED 22:32
DX: F20.0 Paranoid schizophrenia (principal); E10.9 Type 1 diabetes mellitus without complications; Z88.5 Allergy status to narcotic agent; Z88.8 Allergy status to other drugs, medicaments and biological substances; Z79.4 Long term (current) use of insulin
CPT/HCPCS: 36415; 80053; 82947; 83605; 85025; 96372; 99284; A9270; J1815

== ENCOUNTER 2022-07-26 15:39 | Emergency (ER) | payer OTHER, MEDICARE, MEDICAID ==
[2022-07-26] MEDS ORDERED: Haloperidol Lactate 5 MG/ML SDV IVPUSH ONE (15:53)
[2022-07-26] MEDS ORDERED: Sodium Chloride 0.9% 1,000 ML IV SCH (16:00)
[2022-07-26 16:26] LABS: ESTIMATED GFR 67 mL/min (>60)
[2022-07-26] MEDS ORDERED: Insulin Regular, Human 100 Units/ML 3 ML Vial SUBCUT ONE (16:28)
[2022-07-26] MEDS ORDERED: Insulin Glargine,Human Rec. Analog 100 Units/ML 3 ML Pen ONE (17:04)
[2022-07-27] MEDS ORDERED: Insulin Glargine,Human Rec. Analog 100 Units/ML 3 ML Pen SUBCUT ONE (16:55)
== END 2022-07-26 17:22 ==
LOC: JP.ED 15:39
DX: E10.65 Type 1 diabetes mellitus with hyperglycemia (principal); F20.0 Paranoid schizophrenia; Z88.8 Allergy status to other drugs, medicaments and biological substances; Z79.899 Other long term (current) drug therapy; Z79.4 Long term (current) use of insulin
CPT/HCPCS: 36415; 80053; 82009; 83690; 85025; 96361; 96374; 99285; J1630; J1815; J7030

== ENCOUNTER 2022-07-27 16:48 | Emergency (ER) | payer OTHER, MEDICARE, MEDICAID ==
[2022-07-27] MEDS ORDERED: Glucagon,Human Recombinant 1 MG Vial IM PRN (17:09)
[2022-07-27] MEDS ORDERED: Insulin Regular, Human 100 Units/ML 3 ML Vial SUBCUT ONE (17:09)
[2022-07-27] MEDS ORDERED: 50% Dextrose in Water 50 ML Syringe IVPUSH PRN (17:09)
[2022-07-27] MEDS ORDERED: OLANZapine 10 MG Vial IM ONE (17:09)
[2022-07-28] MEDS ORDERED: Insulin Glargine,Human Rec. Analog 100 Units/ML 3 ML Pen SUBCUT ONE (17:11)
== END 2022-07-27 17:43 ==
LOC: JP.ED 16:48
DX: E10.65 Type 1 diabetes mellitus with hyperglycemia (principal); S80.10XA Contusion of unspecified lower leg, initial encounter; Z91.19 Patient's noncompliance with other medical treatment and regimen; Z88.5 Allergy status to narcotic agent; Z88.8 Allergy status to other drugs, medicaments and biological substances
CPT/HCPCS: 96372; 99285; J1815; J3490

== ENCOUNTER 2022-10-04 09:51 | Emergency (ER) | payer MEDICARE, MEDICAID ==
[2022-10-04 10:45] LABS: ESTIMATED GFR 104 mL/min (>60)
== END 2022-10-04 12:50 ==
LOC: JP.ED 09:51
DX: K94.01 Colostomy hemorrhage (principal); K50.10 Crohn's disease of large intestine without complications; E10.9 Type 1 diabetes mellitus without complications; Z88.8 Allergy status to other drugs, medicaments and biological substances; Z79.899 Other long term (current) drug therapy
CPT/HCPCS: 36415; 80053; 85025; 86140; 99284